=== PATIENT | female | born 1995 | race Caucasian/White ===

== ENCOUNTER 2017-12-31 14:18 | Emergency (ER) | payer BC ==
[2017-12-31 14:25] VITALS: BP 125/76; RESP 18; O2SAT 99
[2017-12-31] MEDS ORDERED: Sodium Chloride 0.9% 1,000 ML IV STA (15:11)
[2017-12-31 15:47] LABS: BASO % 0.1 % (0.0-2.0); EOS # 0.2 K/uL (0.0-0.7); EOS % 2.7 % (0.0-4.0); HEMOGLOBIN 13.4 g/dL (12.0-16.0); LYMPH % 12.1 % (20.0-40.0); MEAN CELL VOLUME 83.7 fl (81.0-99.0); MEAN CORPUSCULAR HEMOGLOBIN 28.1 pg (27.0-31.0); MEAN CORPUSCULAR HGB CONC 33.6 g/dL (33.0-37.0); MEAN PLATELET VOLUME 7.9 fl (7.2-11.7); MONO # 0.6 K/uL (0.0-0.8); MONO % 7.6 % (0.0-10.0); NEUT # 6.4 K/uL (1.8-7.0); NEUT % 77.5 % (50.0-75.0); NRBC % 0.2 % (0.0-0.0); RBC 4.77 Mil/uL (3.80-5.20); RED CELL DISTRIBUTION WIDTH 13.5 % (11.5-14.5); WHITE BLOOD COUNT 8.3 K/uL (4.8-10.8)
[2017-12-31 16:06] LABS: ALBUMIN 4.2 g/dL (3.5-5.0); ALT/SGPT 63 U/L (9-52); AST/SGOT 52 U/L (14-36); BLOOD UREA NITROGEN 17 mg/dl (7-17); CALCIUM 9.4 mg/dL (8.4-10.2); GFR AFRICAN-AMERICAN > 60; GFR NON-AFRICAN AMERICAN > 60; LIPASE 44 U/L (23-300)
--- NOTE | 2017-12-31 16:06 | ED PDOC ---
HPI: Abdomen Time Seen by Provider: 12/31/17 15:04 Chief Complaint (Nursing): Abdominal Pain Chief Complaint (Provider): Abdominal Pain, Diarrhea and Vomiting History Per: Patient History/Exam Limitations: no limitations Onset/Duration Of Symptoms: Days (x3) Outside of [place] travel?: No Current Symptoms Are (Timing): Still Present Location Of Pain/Discomfort: Epigastric Quality Of Discomfort: "Pain" Associated Symptoms: Chills, Vomiting, Diarrhea (watery). denies: Nausea, Back Pain, Chest Pain Exacerbating Factors: None Alleviating Factors: None Additional Complaint(s): 22 year old female presents to the ED complaining of abdominal pain, vomiting and diarrhea x3 days. The patient reports that the pain is epigastric and radiates to the left lower quadrant. She states that she had several episodes of vomiting which resolved as she did not vomit today as well as some episodes of mild watery diarrhea. Patient also notes some chills but states that she did not check her temperature. Denies recent travel, antibiotic use, nausea, back pain, chest pain, urinary symptoms. Abnormal Vaginal Bleeding: No Past Medical History Reviewed: Historical Data, Nursing Documentation, Vital Signs Vital Signs: Last Vital Signs Temp 97.8 F 12/31/17 18:04 Pulse 81 12/31/17 18:04 Resp 18 12/31/17 18:04 BP 125/76 12/31/17 18:04 Pulse Ox 99 12/31/17 18:05 - Medical History PMH: No Chronic Diseases - Surgical History Other surgeries: Left Ovarian Cyst Removal - Family History Family History: States: Unknown Family Hx - Social History Current smoker - smoking cessation education provided: No Ex-Smoker (has not smoked in the last 12 months): No Alcohol: None Drugs: Denies - Home Medications Home Medications: Ambulatory Orders Medication Instructions Recorded Dicyclomine [Dicyclomine HCl] 10 mg PO TID #15 cap 12/31/17 Ondansetron ODT [Zofran ODT] 4 mg PO Q8 PRN #12 odt 12/31/17 - Allergies Allergies/Adverse Reactions: Allergies Allergy/AdvReac Type Severity Reaction Status Date / Time No Known Allergies Allergy Verified 12/31/17 14:21 Review of Systems ROS Statement: Except As Marked, All Systems Reviewed And Found Negative Cardiovascular: Negative for: Chest Pain Gastrointestinal: Positive for: Vomiting, Abdominal Pain (epigastric), Diarrhea (mild; watery). Negative for: Nausea Musculoskeletal: Negative for: Back Pain Physical Exam - Reviewed Nursing Documentation Reviewed: Yes Vital Signs Reviewed: Yes - Physical Exam Appears: Positive for: Non-toxic, No Acute Distress Head Exam: Positive for: ATRAUMATIC, NORMAL INSPECTION, NORMOCEPHALIC Skin: Positive for: Normal Color, Warm, Dry. Negative for: Rash Eye Exam: Positive for: Normal appearance, EOMI, PERRL. Negative for: Nystagmus ENT: Positive for: Normal ENT Inspection. Negative for: Nasal Congestion, Tonsillar Exudate, Tonsillar Swelling Neck: Positive for: Normal, Painless ROM, Supple Cardiovascular/Chest: Positive for: Regular Rate, Rhythm, Chest Non Tender. Negative for: Tachycardia Respiratory: Positive for: Normal Breath Sounds. Negative for: Rales, Rhonchi, Wheezing, Respiratory Distress Gastrointestinal/Abdominal: Positive for: Bowel Sounds, Soft, Tenderness ( Epigastric and Left Lower Quadrant). Negative for: Guarding, Rebound Back: Positive for: Normal Inspection. Negative for: L CVA Tenderness, R CVA Tenderness Extremity: Positive for: Normal ROM. Negative for: Tenderness, Deformity, Swelling Neurologic/Psych: Positive for: Alert, Oriented, Gait - Laboratory Results Result Diagrams: 12/31/17 15:37 12/31/17 15:37 - ECG O2 Sat by Pulse Oximetry: 99 (RA) Pulse Ox Interpretation: Normal - Progress Re-evaluation Time: 17:58 Condition: Re-examined, Improved Medical Decision Making Medical Decision Makin Initial Impression 22 y/o female presenting with abdominal pain with vomiting and diarrhea Differentials: Colitis, Gastroenteritis, Pancreatitis Initial Plan: * CT ABD & PELVIS IV Contrast * CMP * Lipase * CBC * Bentyl 10mg PO * NS 1000mls IV 1000mls/hr * Zofran 4mg IV * Reevaluation 1725 PROCEDURE: CT CT scan abdomen pelvis dated 12/31/2017 HISTORY: Abdominal l pain diarrhea/vomiting COMPARISON: Comparison made with CT scan abdomen pelvis dated 12/04/2010. TECHNIQUE: Contiguous axial images of the abdomen pelvis performed following intravenous injection of approximately 97 cc Omnipaque 300 contrast material. . Additional 2 dimensional sagittal and coronal reformats generated. Radiation dose: Total exam DLP = This CT exam was performed using one or more of the following dose reduction techniques: Automated exposure control, adjustment of the mA and/or kV according to patient size, and/or use of iterative reconstruction technique. FINDINGS: LOWER THORAX: Lung bases are clear. No infiltrate effusion or basilar pneumothorax. Heart size within range of normal. The LIVER: Liver exhibits normal size. No evidence of obvious hepatic mass collection or calcification. Minor fatty hepatic infiltration. No gross intrahepatic biliary ductal dilatation. Portal and splenic veins are opacified. GALLBLADDER AND BILE DUCTS: Gallbladder appears collapsed. The no intraluminal gallbladder calculi seen. PANCREAS: The pancreas is grossly unremarkable without masses collections or significant pancreatic ductal dilatation. SPLEEN: Unremarkable. No splenomegaly. ADRENALS: No adrenal lesions KIDNEYS AND URETERS: The kidneys demonstrate symmetric nephrograms. No evidence of nephrolithiasis or hydronephrosis. The BLADDER: Urinary bladder incompletely distended which presumably accounts for slight thick-walled appearance. Possibility of a cystitis not excluded. Correlation with urinalysis recommended. . REPRODUCTIVE: Uterus and adnexal structures unremarkable. APPENDIX: The normal caliber partially air and debris filled retrocecal appendix noted best seen on of the coronal image number [id number] and axial image number [id number]. BOWEL: Evaluation of the bowel is limited due to due to the lack of oral contrast material. Stomach is distended with food debris liquid and air. Visualized loops of small bowel exhibit normal contour and caliber though the minor is wall thickening ; rule out nonspecific enteritis. No evidence of acute mechanical bowel obstruction. Liquid stool is present throughout most of the colon stool oral consistent with diarrheal illness. Min. No definitive evidence of mural wall thickening of the large bowel PERITONEUM: Unremarkable. No fluid collection. No free air. LYMPH NODES: Unremarkable. No enlarged lymph nodes. VASCULATURE: Unremarkable. No aortic aneurysm. BONES: No fracture or destructive lesion. OTHER FINDINGS: None. IMPRESSION: There appears to be minor wall thickening of multiple loops of fluid filled small bowel with liquid stool throughout most of the colon. Findings consistent with enteritis/diarrheal illness. Documented by Lashaun Denney acting as a scribe for Divya Shelley MD. All medical record entries made by the Scribe were at my direction and personally dictated by me. I have reviewed the chart and agree that the record accurately reflects my personal performance of the history, physical exam, medical decision making, and the department course for this patient. I have also personally directed, reviewed, and agree with the discharge instructions and disposition. Disposition - Clinical Impression Clinical Impression: Abdominal pain, Enteritis - Patient ED Disposition Is Patient to be Admitted: No Counseled Patient/Family Regarding: Studies Performed, Diagnosis - Disposition Referrals: [facility] [Outside] Disposition: Routine/Home Disposition Time: 17:59 Condition: GOOD Additional Instructions: Follow up with your PCP in 2-3 days. Prescriptions: Dicyclomine [Dicyclomine HCl] 10 mg PO TID #15 cap Ondansetron ODT [Zofran ODT] 4 mg PO Q8 PRN #12 odt PRN Reason: Nausea/Vomiting Instructions: Viral Gastroenteritis Print Language: ROMANSH
[2017-12-31] MEDS ORDERED: Sodium Chloride 0.9% 100 ML ONE (16:44)
[2017-12-31] MEDS ORDERED: Iohexol 300 100 ML IJ ONE (16:44)
--- NOTE | 2017-12-31 17:26 | CT ---
PROCEDURE: CT CT scan abdomen pelvis dated 12/31/2017 HISTORY: Abdominal l pain diarrhea/vomiting COMPARISON: Comparison made with CT scan abdomen pelvis dated 12/04/2010. TECHNIQUE: Contiguous axial images of the abdomen pelvis performed following intravenous injection of approximately 97 cc Omnipaque 300 contrast material. . Additional 2 dimensional sagittal and coronal reformats generated. Radiation dose: Total exam DLP = This CT exam was performed using one or more of the following dose reduction techniques: Automated exposure control, adjustment of the mA and/or kV according to patient size, and/or use of iterative reconstruction technique. FINDINGS: LOWER THORAX: Lung bases are clear. No infiltrate effusion or basilar pneumothorax. Heart size within range of normal. The LIVER: Liver exhibits normal size. No evidence of obvious hepatic mass collection or calcification. Minor fatty hepatic infiltration. No gross intrahepatic biliary ductal dilatation. Portal and splenic veins are opacified. GALLBLADDER AND BILE DUCTS: Gallbladder appears collapsed. The no intraluminal gallbladder calculi seen. PANCREAS: The pancreas is grossly unremarkable without masses collections or significant pancreatic ductal dilatation. SPLEEN: Unremarkable. No splenomegaly. ADRENALS: No adrenal lesions KIDNEYS AND URETERS: The kidneys demonstrate symmetric nephrograms. No evidence of nephrolithiasis or hydronephrosis. The BLADDER: Urinary bladder incompletely distended which presumably accounts for slight thick-walled appearance. Possibility of a cystitis not excluded. Correlation with urinalysis recommended. . REPRODUCTIVE: Uterus and adnexal structures unremarkable. APPENDIX: The normal caliber partially air and debris filled retrocecal appendix noted best seen on of the coronal image number [id number] and axial image number [id number]. BOWEL: Evaluation of the bowel is limited due to due to the lack of oral contrast material. Stomach is distended with food debris liquid and air. Visualized loops of small bowel exhibit normal contour and caliber though the minor is wall thickening ; rule out nonspecific enteritis. No evidence of acute mechanical bowel obstruction. Liquid stool is present throughout most of the colon stool oral consistent with diarrheal illness. Min. No definitive evidence of mural wall thickening of the large bowel PERITONEUM: Unremarkable. No fluid collection. No free air. LYMPH NODES: Unremarkable. No enlarged lymph nodes. VASCULATURE: Unremarkable. No aortic aneurysm. BONES: No fracture or destructive lesion. OTHER FINDINGS: None. IMPRESSION: There appears to be minor wall thickening of multiple loops of fluid filled small bowel with liquid stool throughout most of the colon. Findings consistent with enteritis/diarrheal illness.
[2017-12-31] MEDS ORDERED: Potassium Chloride 20 mEq ER Tab PO ONE ×2 (17:32→18:02)
[2017-12-31 18:06] VITALS: PULSE 81; TEMP 97.8
== END 2017-12-31 18:28 | disposition home or self-care (01) ==
LOC: SUPCPDRO 14:18 → H.ER 14:18
DX: K52.9 Noninfective gastroenteritis and colitis, unspecified (principal)
CPT/HCPCS: 74177; 80053; 81025; 83690; 85025; 96374; 99283; J2405; J7040; Q9967